=== PATIENT | male | born 1965 | race Caucasian/White ===

== ENCOUNTER 2020-10-24 05:17 | Day surgery (SDC) | payer MEDICAID ==
[2020-10-17 10:49] LABS: BASOPHILS % (AUTO) 0.8 % (0-1); EOSINOPHILS # (AUTO) 0.2 X10'3 (0-0.9); EOSINOPHILS % (AUTO) 2.7 % (0-6); LYMPHOCYTES # (AUTO) 1.6 X10'3 (1.1-4.8); LYMPHOCYTES % (AUTO) 26.6 % (21-51); MEAN CORPUSCULAR HGB CONC 34.1 g/dL (33.0-36.5); MEAN CORPUSCULAR VOLUME 87.9 FL (78-98); MEAN PLATELET VOLUME 7.5 FL (7.4-10.4); MONOCYTES # (AUTO) 0.5 X10'3 (0-0.9); MONOCYTES % (AUTO) 8.1 % (2-12); NEUTROPHILS # (AUTO) 3.8 X10'3 (1.8-7.7); NEUTROPHILS % (AUTO) 61.8 % (42-75); PRE OP HEMATOCRIT 45.4 % (42.0-52.0); PRE OP HEMOGLOBIN 15.5 g/dL (14.0-17.9); PRE OP PLATELET COUNT 245 X10'3 (140-440); RED BLOOD COUNT 5.16 X10'6 (4.70-6.10); RED CELL DISTRIBUTION WIDTH 13.1 % (11.5-14.5)
[2020-10-17 11:10] LABS: ALBUMIN 3.9 G/DL (3.4-5.0); ALBUMIN/GLOBULIN RATIO 1.2 (1.1-1.5); ALKALINE PHOSPHATASE 101 IU/L (46-116); BLOOD UREA NITROGEN 24 MG/DL (7-18); BUN/CREATININE RATIO 23.5 (5.4-32.0); CALCIUM 8.9 MG/DL (8.5-10.1); CHLORIDE 105 MMOL/L (99-107); CREATININE 1.02 MG/DL (0.60-1.10); PRE OP ALT 34 U/L (30-65); PRE OP ANION GAP 8 (8-16); PRE OP AST 21 U/L (10-37); PRE OP BILIRUB, TOTAL 0.5 MG/DL (0.0-1.0); PRE OP GLUCOSE 95 MG/DL (70-104); PRE OP POTASSIUM 3.7 MMOL/L (3.4-5.1); PRE OP SODIUM 142 MMOL/L (135-145); TOTAL CARBON DIOXIDE 29.5 MMOL/L (24-32); TOTAL PROTEIN 7.2 G/DL (6.4-8.2); eGFR 75 ML/MIN
[~2020-10-24] VITALS: Ht 175.3 cm; Wt 101.8 kg
[2020-10-24] VITALS (20 sets, daily range): BP systolic 121–143; BP diastolic 70–104
[~2020-10-24 05:17] MED LIST: ALBU0.63 NEB; ALBU8HFA PO; CYCL5TAB PO; HYDR-3965 PO; HYDR25TA5 PO; LEVO5TAB13 PO; LOSA50TA64 PO; NAPR500T6 PO; OMEP40CA13 PO; UMEC1DIS INH; ringers solution, lacted 1,000 ML IV SCH
[2020-10-24] MEDS ORDERED: famotidine 20mg tablet PO ONE (05:30)
[2020-10-24] MEDS ORDERED: cefazolin/dext.iso 2gm/100ml IV ONE (05:30)
[2020-10-24] MEDS ORDERED: LIDOcaine 1% 30ml preserv. free vial ONE (06:54)
[2020-10-24] MEDS ORDERED: BUPIVAcaine/PF 2.5 mg/ml (0.25%) 30ml vial ONE (06:55)
[2020-10-24] MEDS ORDERED: ondansetron/PF 4mg/2ml inj IV PRN (07:10)
[2020-10-24] MEDS ORDERED: fentaNYL/PF 50MCG/1 ML 2ML syringe IV PRN (07:10)
[2020-10-24] MEDS ORDERED: labetalol 20mg/4ml (5mg/ml) syringe IV PRN (07:10)
[2020-10-24] MEDS ORDERED: ringers solution, lacted 1,000 ML IV SCH (07:10)
[2020-10-24] MEDS ORDERED: hydrALAZINE 20mg/ml inj. IV PRN (07:10)
[2020-10-24] MEDS ORDERED: morphine 2 MG/ML inj. syringe IV PRN (07:10)
[2020-10-24] MEDS ORDERED: fentaNYL/PF 50MCG/1 ML 2ML syringe ONE (07:11)
[2020-10-24] MEDS ORDERED: midazolam 1 mg/ML 2ml injection ONE (07:12)
[2020-10-24] MEDS ORDERED: LIDOcaine 2% (20mg/ml) 5ml vial ONE (07:14)
[2020-10-24] MEDS ORDERED: glycopyrrolate 0.2mg/ml inj ONE (07:16)
[2020-10-24] MEDS ORDERED: propofol inj 20 ML IV ONE (07:16)
[2020-10-24] MEDS ORDERED: neostigmine methylsulfate 1 MG/ML 10ml vial ONE (07:16)
[2020-10-24] MEDS ORDERED: rocuronium 10mg/ml inj IV ONE ×2 (07:16→08:25)
[2020-10-24] MEDS ORDERED: dexamethasone sod phosphate 4mg/ml inj. ONE (07:16)
[2020-10-24] MEDS ORDERED: morphine 10mg/ml inj. ONE (08:57)
[2020-10-24] MEDS ORDERED: naloxone 0.4 mg/ml inj ONE (09:37)
[2020-10-24] MEDS ORDERED: sugammadex 200mg/2ml injection IV ONE (09:39)
--- NOTE | 2020-10-24 09:48 | NUR ---
Received from OR via [facility] , accompanied by Anesthesiologist ANDREA and report given by Anesthesiolgist. PATIENT WITH 20G PIV IN RIGHT UE RUNNING LR AT 100. C.O. 03/30 PAIN. MEDICATED UPON ARRIVAL BY THIS RN. WILL CONTINUE TO ASSESS. 3 ABDOMINAL LAP SITES THAT ARE CD[facility] CURRENTLY. 10L MASK ON WITH 97% SATURATIONS. Addendum: 10/24/20 at 0958 by Darrin Andres RN, RN Amended: Links added.
[2020-10-24] MEDS: fentaNYL/PF 50MCG/1 ML 2ML syringe IV PRN ×2 (09:50→10:09)
[2020-10-24] MEDS ORDERED: oxyCODONE/APAP 5-325mg tablet PO PRN ×2 (10:00)
[2020-10-24] MEDS: morphine 4 MG/ML inj SYRINge IV PRN ×2 (10:03→10:33)
[2020-10-24] MEDS ORDERED: acetaminophen 1,000mg/100ml IV 100 ML IV PRN (10:40)
[2020-10-24] MEDS ORDERED: HYDROmorphone/PF 0.2 MG/ML SYRINGE IV PRN (10:40)
[2020-10-24] MEDS: HYDROmorphone/PF 0.2 MG/ML SYRINGE IV PRN ×2 (10:53→11:13)
[2020-10-24] MEDS ORDERED: albuterol 2.5 MG/3 ML nebule NEB ONE (12:20)
--- NOTE | 2020-10-24 13:08 | NUR ---
ALL DISCHARGE CRITERIA HAS BEEN MET. VSS, PAIN AT A TOLERABLE LEVEL, VOIDING AND ABLE TO SAFELY AMBULATE AND TRANSFER SELF. IV TAKEN OUT WITHOUT ANY COMPLICATIONS. ALL DISCHARGE INSTRUCTIONS COVERED WITH PATIENT AND ALL QUESTIONS ANSWERED. PATIENT TAKEN OUT VIA WHEELCHAIR TO PERSONAL VEHICLE WHERE FAMILY/FRIEND DROVE PATIENT HOME. PATIENT VOIDED AND BLADDER SCANNED AFTER VOID THAT SHOWED NO RESIDUAL URINE. PAIN AT A TOLERABLE LEVEL. Addendum: 10/24/20 at 1331 by Darrin Andres RN, RN Amended: Links added.
== END 2020-10-24 13:08 | disposition home or self-care (01) ==
LOC: PAS 05:17
PROVIDERS: ATTEND Surgery
DX: K43.9 Ventral hernia without obstruction or gangrene (principal); K42.0 Umbilical hernia with obstruction, without gangrene; K40.90 Unilateral inguinal hernia, without obstruction or gangrene, not specified as recurrent; K41.90 Unilateral femoral hernia, without obstruction or gangrene, not specified as recurrent; J44.9 Chronic obstructive pulmonary disease, unspecified; K21.9 Gastro-esophageal reflux disease without esophagitis; I10 Essential (primary) hypertension; F32.9 Major depressive disorder, single episode, unspecified; G89.29 Other chronic pain; E66.9 Obesity, unspecified; Z68.33 Body mass index [BMI] 33.0-33.9, adult; Z98.890 Other specified postprocedural states; Z79.899 Other long term (current) drug therapy; Z87.891 Personal history of nicotine dependence; Z88.8 Allergy status to other drugs, medicaments and biological substances; Z82.3 Family history of stroke; Z82.49 Family history of ischemic heart disease and other diseases of the circulatory system
CPT/HCPCS: 36415; 49650; 49652; 80053; 82948; 85025; 93005; 94640; 94760; C1781; C9399; J0131; J1100; J1170; J2001; J2250; J2270; J2310; J2704; J2710; J3010; J3490; J7120; S2900; A4215; A4618; A7000

== ENCOUNTER 2021-06-10 08:27 | Day surgery (SDC) | payer MEDICAID ==
[2021-06-03 16:21] LABS: ALBUMIN 3.7 G/DL (3.4-5.0); ALKALINE PHOSPHATASE 102 IU/L (46-116); BLOOD UREA NITROGEN 18 MG/DL (7-18); BUN/CREATININE RATIO 16.4 (5.4-32.0); CALCIUM 8.6 MG/DL (8.5-10.1); PRE OP ALT 31 U/L (30-65); PRE OP AST 20 U/L (10-37); PRE OP BILIRUB, TOTAL 0.4 MG/DL (0.0-1.0); PRE OP GLUCOSE 96 MG/DL (70-104); TOTAL CARBON DIOXIDE 29.1 MMOL/L (24-32); TOTAL PROTEIN 7.5 G/DL (6.4-8.2); eGFR 69 ML/MIN
[2021-06-03 16:26] LABS: BASOPHILS # (AUTO) 0.1 X10'3 (0-0.2); BASOPHILS % (AUTO) 0.8 % (0-1); EOSINOPHILS # (AUTO) 0.1 X10'3 (0-0.9); EOSINOPHILS % (AUTO) 1.3 % (0-6); LYMPHOCYTES % (AUTO) 26.3 % (21-51); MEAN CORPUSCULAR HEMOGLOBIN 30.1 PG (27.0-31.0); MEAN CORPUSCULAR HGB CONC 34.9 g/dL (33.0-36.5); MEAN CORPUSCULAR VOLUME 86.2 FL (78-98); MEAN PLATELET VOLUME 7.3 FL (7.4-10.4); MONOCYTES # (AUTO) 0.7 X10'3 (0-0.9); NEUTROPHILS # (AUTO) 4.7 X10'3 (1.8-7.7); NEUTROPHILS % (AUTO) 62.6 % (42-75); PRE OP HEMOGLOBIN 14.7 g/dL (14.0-17.9); PRE OP PLATELET COUNT 329 X10'3 (140-440); RED BLOOD COUNT 4.88 X10'6 (4.70-6.10); RED CELL DISTRIBUTION WIDTH 12.7 % (11.5-14.5)
[2021-06-03 18:14] LABS: CHLORIDE 104 MMOL/L (99-107); PRE OP ANION GAP 8 (8-16); PRE OP POTASSIUM 3.5 MMOL/L (3.4-5.1); PRE OP SODIUM 141 MMOL/L (135-145)
[2021-06-10] VITALS (9 sets, daily range): BP systolic 117–138; BP diastolic 81–99
[~2021-06-10] VITALS: Ht 172.7 cm; Wt 102.4 kg
[~2021-06-10 08:27] MED LIST changes: +BUPIVAcaine/PF 2.5 mg/ml (0.25%) 30ml vial ONE; +LIDOcaine 1% 30ml preserv. free vial ONE; -NAPR500T6 PO; -OMEP40CA13 PO; +OMEP40CA21 PO; +cefazolin/dext.iso 2gm/50ml IV ONE; +famotidine 20mg tablet PO ONE
[2021-06-10] MEDS ORDERED: HYDROmorphone/PF 0.2 MG/ML SYRINGE IV PRN (11:15)
[2021-06-10] MEDS ORDERED: proCHLORperazine 10 MG/2 ml inj IV PRN (11:15)
[2021-06-10] MEDS ORDERED: acetaminophen 1,000mg/100ml IV 100 ML IV PRN (11:15)
[2021-06-10] MEDS ORDERED: labetalol 20mg/4ml (5mg/ml) syringe IV PRN (11:15)
[2021-06-10] MEDS ORDERED: ondansetron/PF 4mg/2ml inj IV PRN (11:15)
[2021-06-10] MEDS ORDERED: hydrALAZINE 20mg/ml inj. IV PRN (11:15)
[2021-06-10] MEDS ORDERED: morphine 4 MG/ML inj SYRINge IV PRN (11:15)
[2021-06-10] MEDS ORDERED: morphine 2 MG/ML inj. syringe IV PRN (11:15)
[2021-06-10] MEDS ORDERED: ringers solution, lacted 1,000 ML IV SCH (11:15)
[2021-06-10] MEDS ORDERED: ketorolac trometh. 30mg/ml inj. IV ONE (11:15)
[2021-06-10] MEDS ORDERED: fentaNYL /PF 50mcg/ml 5ml ampule ONE (11:28)
[2021-06-10] MEDS ORDERED: midazolam 1 mg/ML 2ml injection ONE (11:28)
[2021-06-10] MEDS ORDERED: BUPIVACAINE liposomal/PF 13.3 MG/ML vial IM ONE (11:37)
[2021-06-10] MEDS ORDERED: BUPIVAcaine/PF 2.5mg/ml (0.25%) 10ml vial ONE (11:37)
[2021-06-10] MEDS ORDERED: propofol inj 20 ML IV ONE (11:38)
[2021-06-10] MEDS ORDERED: LIDOcaine 2% (20mg/ml) 5ml vial ONE (11:38)
[2021-06-10] MEDS ORDERED: rocuronium 10mg/ml inj IV ONE (11:38)
[2021-06-10] MEDS ORDERED: neostigmine methylsulfate 1 MG/ML 10ml vial ONE (12:44)
[2021-06-10] MEDS ORDERED: glycopyrrolate 0.2mg/ml inj ONE (12:44)
[2021-06-10] MEDS ORDERED: dexamethasone sod phosphate 4mg/ml inj. ONE (12:45)
[2021-06-10] MEDS ORDERED: ondansetron/PF 4mg/2ml inj ONE (12:46)
[2021-06-10] MEDS ORDERED: oxyCODONE/APAP 10/325mg tablet PO PRN (13:00)
--- NOTE | 2021-06-10 13:01 | NUR ---
Received from OR via , accompanied by Anesthesiologist DR LEES and report given by Anesthesiolgist. AWAKENS TO VOICE. VITALS STABLE. DRESSINGS DI. ADRI PAIN. ABD SOFT.
[2021-06-10] MEDS: HYDROmorphone/PF 0.2 MG/ML SYRINGE IV PRN ×2 (13:29→14:17)
--- NOTE | 2021-06-10 14:41 | NUR ---
AWAKE AND ORIENTED. VITALS STABLE. DRESSINGS DI. STATES PAIN IMPROVING. HOME WITH HIS AT THIS TIME.
== END 2021-06-10 14:41 | disposition home or self-care (01) ==
LOC: PAS 08:27
PROVIDERS: ATTEND Surgery
DX: K42.9 Umbilical hernia without obstruction or gangrene (principal); K43.2 Incisional hernia without obstruction or gangrene; I10 Essential (primary) hypertension; F32.9 Major depressive disorder, single episode, unspecified; G89.29 Other chronic pain; K21.9 Gastro-esophageal reflux disease without esophagitis; J44.9 Chronic obstructive pulmonary disease, unspecified; E66.9 Obesity, unspecified; Z68.33 Body mass index [BMI] 33.0-33.9, adult; Z87.891 Personal history of nicotine dependence; Z88.8 Allergy status to other drugs, medicaments and biological substances; Z91.09 Other allergy status, other than to drugs and biological substances; Z79.899 Other long term (current) drug therapy; Z98.890 Other specified postprocedural states; Z20.822 Contact with and (suspected) exposure to COVID-19; Z82.3 Family history of stroke; Z82.49 Family history of ischemic heart disease and other diseases of the circulatory system
CPT/HCPCS: 36415; 49652; 49654; 64488; 71046; 80053; 82948; 85025; 93005; C1781; C9290; J0131; J0690; J1100; J1170; J1885; J2250; J2270; J2405; J2704; J2710; J3010; J3490; J7030; J7120; U0003; U0005; Z7506; Z7508; Z7512; A4215; A4618